=== PATIENT | female | born 1965 | race Caucasian/White ===

== ENCOUNTER 2017-07-31 06:16 | Day surgery (SDC) | payer MEDICAID ==
[2017-07-31] MEDS ORDERED: LIDOCAINE 2% MDV (20MG/ML) 20ML VIAL IV ONE (06:17)
[2017-07-31] MEDS ORDERED: PROPOFOL 10 MG/ML VIAL IV ONE (06:17)
--- NOTE | 2017-08-04 07:10 | Operative Note ---
DATE OF SURGERY: 07/31/2017 REQUESTING PHYSICIAN: JAMES Leonard SURGEON: Som Bird MD POSTOPERATIVE DIAGNOSES: 1. Two 6-7 mm sessile polyps in the sigmoid colon that were removed by cold snare. 2. A 6 mm sessile polyp in the rectum that was also removed by cold snare. 3. Otherwise normal colon. OPERATION: COLONOSCOPY and exam. REASON FOR PROCEDURE: This is a 52-year-old female with average risk for colorectal cancer who presented for screening colonoscopy. SEDATION: Sedation as per anesthesia. Pulse oximetry was monitored throughout the duration of the procedure to maintain O2 saturation of 90% or greater. Supplemental oxygen was administered via nasal cannula. Cardiac and vital signs were monitored throughout the duration of the procedure and they were stable. PROCEDURE: Description of the procedure of colonoscopy, risks, and alternatives to the procedure including the risk of bleeding and perforation among others were explained to the patient who voiced understanding and agreed to have the procedure done. A physical examination was performed and the patient was found stable for sedation. The patient was then placed in the left lateral position and sedation was initiated. Digital rectal exam was performed and showed small external hemorrhoids with no palpable rectal masses. A lubricated Olympus PCF-180AL colonoscope was then inserted into the rectum under direct visualization and was advanced to the cecum without difficulty. The ileocecal valve and appendiceal orifice were identified and photographed. The colonic mucosa was carefully examined upon insertion of the colonoscope. There were no gross lesions noted. The bowel preparation was fair. The colonoscope was then withdrawn while carefully examining the colonic mucosal surfaces. The cecum, ascending colon, transverse colon, and descending colon appeared normal. In the sigmoid colon were two 6-7 sessile polyps that were noted and they were removed by cold snare. In the rectum was a 6 mm sessile polyp that was removed by cold snare. Upon retroflexion, there were no other lesions noted. Grade 1 internal hemorrhoids were noted. The colonoscope was then withdrawn and the procedure was terminated. The patient tolerated the procedure well without any complications. The patient remained with stable vital signs and was sent to the recovery room. PLAN AND RECOMMENDATIONS: 1. The patient is to be on a high-fiber diet. 2. The patient is to have repeat colonoscopy in 3 or 5 or 10 years depending on histology of the polyps. Thank you for allowing me to participate in the care of this patient. CC: JAMES Leonard
== END 2017-07-31 08:30 | disposition home or self-care (01) ==
LOC: HOP 06:16
PROVIDERS: ATTEND Internal Medicine Gastroenterology
DX: Z12.11 Encounter for screening for malignant neoplasm of colon (principal); D12.5 Benign neoplasm of sigmoid colon; K62.1 Rectal polyp